=== PATIENT | male | born 1980 | race Two or more races ===

== ENCOUNTER 2024-05-28 12:12 | Emergency (ER) | payer SELFPAY ==
[~2024-05-28] VITALS: Ht 185.4 cm; Wt 105.0 kg
[2024-05-28] MEDS: NALOXONE HCL 1MG/ML 2ML SYRINGE IV ONE ×2 (12:21→12:30)
[2024-05-28] MEDS: NALOXONE HCL 1MG/ML 2ML SYRINGE ONE (12:41)
[2024-05-28 12:56] VITALS: PULSE 83; RESP 13; O2SAT 95
[2024-05-28 13:00] LABS: Basophils # (auto) 0.1 10 ^3/uL (0-0.2); Basophils % (auto) 0.8 % (0.0-2.0); Eosinophils # (auto) 0.1 10 ^3/uL (0-0.8); Hematocrit 45.9 % (41.0-53.0); Hemoglobin 15.7 g/dL (13.5-17.5); Lymphocytes # (auto) 1.2 10 ^3/uL (0.4-5.4); Mean Corpuscular Hgb Conc. 34.2 g/dL (32.0-36.0); Mean Corpuscular Volume 84.6 fL (80.0-100.0); Monocytes # (auto) 0.6 10 ^3/uL (0-1.3); Monocytes % (auto) 7.2 % (0.0-12.0); Neutrophils # (auto) 5.8 10 ^3/uL (1.6-8.6); Nucleated Red Blood Cells % 0.1 %; Red Blood Cells 5.42 10^6/uL (4.5-5.90); Red Cell Distribution Width 13.7 % (11.8-14.3); White Blood Cell 7.8 10^3/uL (4.4-10.8)
[2024-05-28 13:20] LABS: Alanine Aminotransferase 83 U/L (7-40); Albumin 4.7 g/dL (3.2-4.8); Alkaline Phosphatase 79 U/L (46-116); Anion Gap 11 (5-15); Aspartate Aminotransferase 46 U/L (13-40); BUN/Creatinine Ratio 16.3 (10.0-20.0); Blood Urea Nitrogen 15 mg/dL (9-23); Calcium 9.6 mg/dL (8.7-10.4); Carbon Dioxide 23 mmol/L (20-30); Chloride 108 mmol/L (98-107); Glucose 120 mg/dL (74-106); Potassium 3.8 mmol/L (3.5-5.1); Sodium 142 mmol/L (136-145)
[2024-05-28 13:21] LABS: Bilirubin, Total 0.5 mg/dL (0.2-1.0); Total Protein 7.4 g/dL (5.7-8.2)
[2024-05-28] MEDS: NALOXONE HCL 2 MG in D5W 5% 495 ML IV ONE (13:27)
[2024-05-28 13:56] LABS: Acetaminophen < 2.0 UG/ML (10.0-20.0)
[2024-05-28 13:57] LABS: Salicylate < 3.0 mg/dL (2.8-20.0)
[2024-05-28] MEDS: SODIUM CHLORIDE 0.9% 1,000 ML IV ONE (14:13)
[2024-05-28 17:36] VITALS: BP 116/67; PULSE 93; RESP 20; O2SAT 94
== END 2024-05-28 18:03 | disposition left against medical advice (07) ==
LOC: ER 12:12 → EDBD 12:12 → ER 18:03
DX: R40.4 Transient alteration of awareness (principal); F10.129 Alcohol abuse with intoxication, unspecified; Y90.7 Blood alcohol level of 200-239 mg/100 ml
CPT/HCPCS: 36415; 70450; 71045; 80053; 80320; 80329; 82962; 83880; 84484; 85025; 93005; 96365; 96366; 96375; 99285; J2310; J7030; J7060